=== PATIENT | female | born 2000 | race Caucasian/White ===

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

== ENCOUNTER 2024-08-29 12:39 | Outpatient (REF) | payer BC, SELFPAY ==
--- NOTE | 2024-08-29 10:30 | PAPFT_PTH ---
PATIENT: Thalia Champion LOC: [facility] U#:[id number] AGE/SX: 24/F ROOM: RE08/29/[address]: Austin Aleman DNP : 2000 BED: DIS: 08/29/2024 SPEC #: [id number] RECD: 08/29/24 13:04 STATUS: MATTHIAS REGideon #: [id number] EMERY: 08/29/24 10:[address]: Austin Madera DEPT: [facility] Cytology RECD BY: Rosana Lyons Tissues: 1 - CX/ENDOCX FOR PAP SMEARS Procedures: PAP THIN PREP/[facility] Screening Comments: [id number]
== END 2024-08-29 12:40 | disposition home or self-care (01) ==
LOC: LBN 12:39
PROVIDERS: PCP Nurse Practitioner Family; Visit Provider Nurse Practitioner Family
DX: Z12.4 Encounter for screening for malignant neoplasm of cervix (principal); F98.8 Other specified behavioral and emotional disorders with onset usually occurring in childhood and adolescence
CPT/HCPCS: 88142